=== PATIENT | female | born 1985 | race Caucasian/White ===

== ENCOUNTER 2019-08-04 00:35 | Emergency (ER) | payer OTHER ==
[~2019-08-04] VITALS: Ht 165.1 cm; Wt 114.8 kg
[2019-08-04 00:55] VITALS: BP 133/92
--- NOTE | 2019-08-04 00:58 | NUR ---
PT AMBULATED TO ER BED 02
[2019-08-04] MEDS ORDERED: CLINDAMYCIN 600 MG/4 ML VIAL IM ONE (01:05)
[2019-08-04] MEDS ORDERED: ONDANSETRON 4 MG ODT PO ONE (01:05)
[2019-08-04] MEDS ORDERED: MORPHINE SULFATE 2 MG/ML SYR IM ONE (01:05)
--- NOTE | 2019-08-04 01:23 | NUR ---
34 Y/O FEMALE C/O LEFT LOWER 3RD MOLAR TOOTHACHE X 1 WEEK. RATES PAIN 10/10 AND DESCRIBES IT SHOOTING. NO DRIANAGE OR SWELLING NOTED ON LEFT LOWER 3RD MOLAR. VSS. A&OX4. STEADY GAIT. +NAUSEA. DENIES ANY V,D. ABD IS SOFT, ROUND, NONTENDER, AND ACTIVE BS. NKA. PMH: HTN, C/S.
[2019-08-04 01:46] VITALS: BP 133/92
--- NOTE | 2019-08-04 01:47 | NUR ---
Patient discharged with v/s stable. Written and verbal after care instructions given and explained. Patient alert, oriented and verbalized understanding of instructions. Ambulatory with steady gait. All questions addressed prior to discharge. ID band removed. Patient advised to follow up with PMD. Rx of AUGMENTIN, TRAMDOL, ZOFRAN given. Patient educated on indication of medication including possible reaction and side effects. Opportunity to ask questions provided and answered.
== END 2019-08-04 01:45 | disposition home or self-care (01) ==
LOC: MED 00:35
DX: K04.7 Periapical abscess without sinus (principal)
CPT/HCPCS: 96372; 99284; J2270; J3490; Q0162

== ENCOUNTER 2020-05-17 20:38 | Inpatient (IN) | payer MEDICAID, SELFPAY ==
[~2020-05-17] VITALS: Ht 165.1 cm; Wt 117.0 kg
[2020-05-17 20:40] VITALS: BP 130/80
[2020-05-17] MEDS ORDERED: NACL 0.9% 1,000 ML IV SCH (21:05)
[2020-05-17] MEDS ORDERED: cefTRIAXone 1,000 MG in DEXT 5% MINI-BAG PLUS 50 ML IV ONE (21:05)
[2020-05-17] MEDS ORDERED: MORPHINE SULFATE 4 MG/ML SYR IVP ONE (21:05)
[2020-05-17] MEDS ORDERED: methylPREDNISolone SS 125 MG/2 ML VIAL IVP ONE (21:10)
[2020-05-17] MEDS ORDERED: cefTRIAXone 1,000 MG VIAL ONE (21:23)
[2020-05-17 21:34] LABS: BASOPHILS # (AUTO) 0.1 K/uL (0.00-0.22); BASOPHILS % (AUTO) 1.1 % (0.0-2.0); EOSINOPHILS # (AUTO) 0.3 K/uL (0-0.4); EOSINOPHILS % (AUTO) 2.6 % (0.0-4.0); HEMATOCRIT 37.5 % (36-48); HEMOGLOBIN 12.4 g/dL (12.0-16.0); LYMPHOCYTES # (AUTO) 1.6 K/uL (2.5-16.5); LYMPHOCYTES % (AUTO) 14.6 % (20.5-51.1); MEAN CORPUSCULAR HEMOGLOBIN 27 pg (27-31); MEAN CORPUSCULAR HGB CONC 33 g/dL (33-37); MEAN CORPUSCULAR VOLUME 81.6 fL (80-94); MONOCYTES # (AUTO) 0.9 K/uL (0.8-1.0); MONOCYTES % (AUTO) 8.4 % (1.7-9.3); NEUTROPHILS # (AUTO) 8.1 K/uL (1.8-7.7); NEUTROPHILS % (AUTO) 73.3 % (42.2-75.2); PLATELET COUNT (AUTO) 171 K/uL (140-450); RED BLOOD CELL COUNT(AUTO) 4.59 MIL/uL (4.20-5.40); RED CELL DISTRIBUTION WIDTH 16.8 % (11.6-13.7)
[2020-05-17 21:47] LABS: ALBUMIN 3.1 g/dL (3.4-5.0); CREATININE 0.7 mg/dL (0.6-1.3); TOTAL BILIRUBIN 0.4 mg/dL (0.0-1.0)
[2020-05-17 21:48] LABS: APPEARANCE,URINE CLEAR (CLEAR); BILIRUBIN,URINE NEGATIVE (NEGATIVE); BLOOD, URINE NEGATIVE (NEGATIVE); COLOR,URINE ORANGE (YELLOW); LEUKOCYTE ESTERASE ,URINE NEGATIVE (NEGATIVE); NITRITE, URINE POSITIVE (NEGATIVE); UGLUCOSE 3+ (NEGATIVE)
[2020-05-17 22:01] LABS: ANION GAP 13.1 (8-16); CARBON DIOXIDE 26.5 mmol/L (21-32); POTASSIUM 3.6 mmol/L (3.5-5.1)
[2020-05-17 22:15] LABS: RBC,URINE 0-5 /HPF (0-5); WBC,URINE 0-5 /HPF (0-5)
[2020-05-17] MEDS ORDERED: NACL 0.9% 1,000 ML IV ONE (22:55)
[2020-05-18] MEDS: NACL 0.9% 1,000 ML IV SCH ×4 (00:30→21:31)
[2020-05-18] MEDS: MORPHINE SULFATE 2 MG/ML SYR IVP PRN ×5 (01:37→21:33)
[2020-05-18] MEDS ORDERED: ONDANSETRON 4 MG/2 ML VIAL IM/IVP PRN (01:55)
[2020-05-18] MEDS ORDERED: POTASSIUM CHLORIDE 40 MEQ, LIDOCAINE MPF 1% 25 MG in NACL 0.9% 250 ML IV PRN (01:55)
[2020-05-18] MEDS ORDERED: DEXTROSE 50% 50 ML SYR IVP PRN (01:55)
[2020-05-18] MEDS ORDERED: DOCUSATE SODIUM 100 MG GELCAP PO PRN (01:55)
[2020-05-18] MEDS ORDERED: MAG SULF 2000 MG/WATER PREMIX 50 ML IV PRN (01:55)
[2020-05-18] MEDS ORDERED: ACETAMINOPHEN 325 MG TAB PO PRN (01:55)
[2020-05-18] MEDS ORDERED: SODIUM PHOS / POTASSIUM PHOS 1 PKT PDR PO PRN (01:55)
[2020-05-18 02:39] LABS: BARBITURATE, URINE NEGATIVE ng/ml (NEG <=200); BENZODIAZEPINE, URINE POSITIVE ng/mL (NEG <=200); CANNABINOID, URINE NEGATIVE ng/mL (NEG <=50); COCAINE, URINE NEGATIVE ng/mL (NEG <=300); OPIATE, URINE POSITIVE ng/mL (NEG <=2000); PHENCYCLIDINE SCREEN,URINE NEGATIVE ng/mL (NEG <=25)
[2020-05-18] MEDS: HYDROcodone/APAP 5/325 MG 1 TAB TAB PO PRN (03:33)
[2020-05-18 04:28] VITALS: BP 103/56
[2020-05-18 05:09] VITALS: BP 142/81
[2020-05-18] MEDS: INSULIN LISPRO SLIDING SCALE 100 UNITS/ML VIAL SUBQ PRN ×5 (06:19→21:46)
[2020-05-18] MEDS: BLOOD GLUCOSE MONITORING 1 DEV DEV FS SCH ×4 (07:30→21:38)
[2020-05-18 08:00] VITALS: BP 117/98
[2020-05-18 10:13] LABS: BASOPHILS # (AUTO) 0.1 K/uL (0.00-0.22); BASOPHILS % (AUTO) 0.5 % (0.0-2.0); HEMATOCRIT 38.2 % (36-48); HEMOGLOBIN 12.5 g/dL (12.0-16.0); LYMPHOCYTES # (AUTO) 1.2 K/uL (2.5-16.5); LYMPHOCYTES % (AUTO) 8.2 % (20.5-51.1); MEAN CORPUSCULAR HEMOGLOBIN 27 pg (27-31); MEAN CORPUSCULAR HGB CONC 33 g/dL (33-37); MEAN CORPUSCULAR VOLUME 81.1 fL (80-94); MONOCYTES # (AUTO) 0.4 K/uL (0.8-1.0); MONOCYTES % (AUTO) 2.9 % (1.7-9.3); NEUTROPHILS # (AUTO) 12.8 K/uL (1.8-7.7); NEUTROPHILS % (AUTO) 88.4 % (42.2-75.2); PLATELET COUNT (AUTO) 196 K/uL (140-450); RED BLOOD CELL COUNT(AUTO) 4.71 MIL/uL (4.20-5.40); WHITE BLOOD COUNT (AUTO) 14.5 K/uL (4.8-10.8)
[2020-05-18 10:23] LABS: ANION GAP 18.9 (8-16); CARBON DIOXIDE 19.8 mmol/L (21-32); CREATININE 0.7 mg/dL (0.6-1.3); POTASSIUM 4.7 mmol/L (3.5-5.1)
[2020-05-18 10:28] LABS: MAGNESIUM 1.8 mg/dL (1.8-2.4); PHOSPHORUS 3.8 mg/dL (2.5-4.9)
[2020-05-18] MEDS ORDERED: MORPHINE SULFATE 4 MG/ML SYR IVP SCH (11:35)
[2020-05-18] MEDS ORDERED: LABE100T8 PO (12:49)
[2020-05-18 14:33] LABS: ANION GAP 17.4 (8-16); CARBON DIOXIDE 20.9 mmol/L (21-32); CREATININE 0.7 mg/dL (0.6-1.3); POTASSIUM 4.3 mmol/L (3.5-5.1)
[2020-05-18 18:49] LABS: ANION GAP 15.4 (8-16); CARBON DIOXIDE 21.5 mmol/L (21-32); CREATININE 0.6 mg/dL (0.6-1.3); POTASSIUM 3.9 mmol/L (3.5-5.1)
[2020-05-18 20:00] VITALS: BP 121/68
[2020-05-18] MEDS: CLINDAMYCIN 600 MG in DEXTROSE 5% 50 ML IV SCH (21:39)
[2020-05-18] MEDS: INSULIN LANTUS 100 UNITS/ML 10 ML VIAL SUBQ SCH (21:44)
[2020-05-18 22:12] LABS: ANION GAP 12.8 (8-16); CARBON DIOXIDE 24.2 mmol/L (21-32); CREATININE 0.9 mg/dL (0.6-1.3)
[2020-05-18] MEDS ORDERED: HYDROmorphone 1 MG/ML AMP IVP PRN (23:10)
[2020-05-19] MEDS: NACL 0.9% 1,000 ML IV SCH ×2 (03:12→11:09)
[2020-05-19 04:00] VITALS: BP 138/80
[2020-05-19] MEDS: MORPHINE SULFATE 2 MG/ML SYR IVP PRN ×4 (04:42→20:21)
[2020-05-19] MEDS: CLINDAMYCIN 600 MG in DEXTROSE 5% 50 ML IV SCH ×3 (05:42→21:00)
[2020-05-19] MEDS: INSULIN LISPRO SLIDING SCALE 100 UNITS/ML VIAL SUBQ PRN ×4 (05:43→22:20)
[2020-05-19 06:06] LABS: ANION GAP 14.3 (8-16); CARBON DIOXIDE 23.7 mmol/L (21-32); CREATININE 0.6 mg/dL (0.6-1.3)
[2020-05-19 06:13] LABS: BASOPHILS # (AUTO) 0.1 K/uL (0.00-0.22); EOSINOPHILS # (AUTO) 0.2 K/uL (0-0.4); EOSINOPHILS % (AUTO) 1.9 % (0.0-4.0); HEMATOCRIT 33.4 % (36-48); LYMPHOCYTES # (AUTO) 1.9 K/uL (2.5-16.5); LYMPHOCYTES % (AUTO) 19.2 % (20.5-51.1); MEAN CORPUSCULAR HEMOGLOBIN 27 pg (27-31); MEAN CORPUSCULAR HGB CONC 33 g/dL (33-37); MEAN CORPUSCULAR VOLUME 82.2 fL (80-94); MONOCYTES # (AUTO) 0.7 K/uL (0.8-1.0); MONOCYTES % (AUTO) 6.9 % (1.7-9.3); PLATELET COUNT (AUTO) 199 K/uL (140-450); RED BLOOD CELL COUNT(AUTO) 4.06 MIL/uL (4.20-5.40); RED CELL DISTRIBUTION WIDTH 16.6 % (11.6-13.7); WHITE BLOOD COUNT (AUTO) 9.9 K/uL (4.8-10.8)
[2020-05-19 06:16] LABS: CHOL/HDL RATIO 6.2 (1-4.5)
[2020-05-19] MEDS: BLOOD GLUCOSE MONITORING 1 DEV DEV FS SCH ×6 (06:58→22:15)
[2020-05-19 08:00] VITALS: BP 105/54
[2020-05-19] MEDS: LABETALOL 100 MG TAB PO SCH (08:46)
[2020-05-19] MEDS: HYDROcodone/APAP 5/325 MG 1 TAB TAB PO PRN ×2 (11:50→17:34)
[2020-05-19 16:00] VITALS: BP 126/74
[2020-05-19] MEDS: INSULIN LANTUS 100 UNITS/ML 10 ML VIAL SUBQ SCH (22:21)
[2020-05-19] MEDS ORDERED: HYDROmorphone 1 MG/ML AMP IVP PRN (23:00)
[2020-05-20] MEDS: NACL 0.9% 1,000 ML IV SCH (01:25)
[2020-05-20 04:00] VITALS: BP 132/85
[2020-05-20] MEDS: MORPHINE SULFATE 2 MG/ML SYR IVP PRN ×3 (05:06→17:40)
[2020-05-20] MEDS: CLINDAMYCIN 600 MG in DEXTROSE 5% 50 ML IV SCH ×2 (05:07→17:27)
[2020-05-20] MEDS: BLOOD GLUCOSE MONITORING 1 DEV DEV FS SCH ×3 (06:05→17:08)
[2020-05-20 06:44] LABS: BASOPHILS # (AUTO) 0.1 K/uL (0.00-0.22); BASOPHILS % (AUTO) 1.2 % (0.0-2.0); EOSINOPHILS # (AUTO) 0.3 K/uL (0-0.4); EOSINOPHILS % (AUTO) 3.6 % (0.0-4.0); HEMATOCRIT 34.8 % (36-48); HEMOGLOBIN 11.5 g/dL (12.0-16.0); LYMPHOCYTES # (AUTO) 2.2 K/uL (2.5-16.5); LYMPHOCYTES % (AUTO) 29.6 % (20.5-51.1); MEAN CORPUSCULAR HEMOGLOBIN 27 pg (27-31); MEAN CORPUSCULAR HGB CONC 33 g/dL (33-37); MEAN CORPUSCULAR VOLUME 81.6 fL (80-94); MONOCYTES # (AUTO) 0.6 K/uL (0.8-1.0); MONOCYTES % (AUTO) 8.7 % (1.7-9.3); NEUTROPHILS # (AUTO) 4.2 K/uL (1.8-7.7); NEUTROPHILS % (AUTO) 56.9 % (42.2-75.2); PLATELET COUNT (AUTO) 176 K/uL (140-450); RED BLOOD CELL COUNT(AUTO) 4.26 MIL/uL (4.20-5.40); RED CELL DISTRIBUTION WIDTH 16.4 % (11.6-13.7); WHITE BLOOD COUNT (AUTO) 7.4 K/uL (4.8-10.8)
[2020-05-20 06:47] LABS: ANION GAP 13.7 (8-16); CREATININE 0.5 mg/dL (0.6-1.3); POTASSIUM 3.7 mmol/L (3.5-5.1)
[2020-05-20] MEDS ORDERED: DEXT 5% / NACL 0.9% 500 ML IV SCH (07:50)
[2020-05-20] MEDS ORDERED: DEXT 5% /NACL 0.9% 1,000 ML IV SCH (08:00)
[2020-05-20] MEDS: LABETALOL 100 MG TAB PO SCH (08:41)
[2020-05-20] MEDS: INSULIN LISPRO SLIDING SCALE 100 UNITS/ML VIAL SUBQ PRN ×2 (11:49→17:11)
[2020-05-20] MEDS ORDERED: BUPIVACAINE-MPF/EPI 0.25% 30 ML VIAL INJ ONE ×2 (12:56→14:59)
[2020-05-20] MEDS ORDERED: METF500T PO (12:57)
[2020-05-20] MEDS ORDERED: CLIN300C2 PO (12:57)
[2020-05-20] MEDS ORDERED: ACET-9882 PO (12:57)
[2020-05-20] MEDS ORDERED: HYDROGEN PEROXIDE 3% 240 ML BTL TP ONE (12:57)
[2020-05-20] MEDS ORDERED: IBUP-1842 PO (12:57)
[2020-05-20] MEDS ORDERED: MEPERIDINE 25 MG/ML SYR IVP PRN (16:00)
[2020-05-20] MEDS ORDERED: diphenhydrAMINE 50 MG/ML VIAL IVP PRN (16:00)
[2020-05-20] MEDS ORDERED: ONDANSETRON 4 MG/2 ML VIAL IVP PRN (16:00)
[2020-05-20] MEDS ORDERED: HYDROmorphone 1 MG/ML AMP IVP PRN (16:00)
[2020-05-20] MEDS ORDERED: LACTATED RINGERS 1,000 ML IV SCH (16:00)
[2020-05-20 19:30] VITALS: BP 125/75
== END 2020-05-20 20:30 | disposition home health service (06) | DRG 720 ==
LOC: MED 20:38 → MTU 22:04
PROVIDERS: ADMIT Hospitalist; ATTEND Hospitalist
PROC: 0JB70ZZ Excision of Back Subcutaneous Tissue and Fascia, Open Approach (ICD-10-PCS; principal; 2020-05-20 12:50)
DX: A41.9 Sepsis, unspecified organism (principal); E87.1 Hypo-osmolality and hyponatremia; E44.1 Mild protein-calorie malnutrition; Z68.41 Body mass index [BMI] 40.0-44.9, adult; N39.0 Urinary tract infection, site not specified; E66.01 Morbid (severe) obesity due to excess calories; Z20.822 Contact with and (suspected) exposure to COVID-19; L03.312 Cellulitis of back [any part except buttock and flank]; L02.211 Cutaneous abscess of abdominal wall; E11.65 Type 2 diabetes mellitus with hyperglycemia; I10 Essential (primary) hypertension; E78.1 Pure hyperglyceridemia; F17.210 Nicotine dependence, cigarettes, uncomplicated; I96 Gangrene, not elsewhere classified; Z71.3 Dietary counseling and surveillance; Z86.32 Personal history of gestational diabetes; Z98.891 History of uterine scar from previous surgery; Z83.3 Family history of diabetes mellitus; Z82.49 Family history of ischemic heart disease and other diseases of the circulatory system
CPT/HCPCS: 36415; 71045; 76881; 80048; 80053; 80305; 81001; 81025; 82803; 82948; 83036; 83605; 83735; 83880; 84100; 84484; 85025; 87040; 87070; 87075; 87081; 87086; 87205; 93005; 96361; 96374; 96375; 99285; J0696; J1170; J1815; J2175; J2270; J2405; J2930; J3490; J7030; J7042; J7060

== ENCOUNTER 2020-05-22 20:28 | Emergency (ER) | payer MEDICAID, SELFPAY ==
[~2020-05-22] VITALS: Ht 165.1 cm; Wt 117.5 kg
[~2020-05-22 20:28] MED LIST: ACET-9882 PO; CLIN300C2 PO; IBUP-1842 PO; LABE100T8 PO; METF500T PO
[2020-05-22 20:35] VITALS: BP 151/94
--- NOTE | 2020-05-22 20:44 | NUR ---
PT AMBULATORY TO LOBBY TO A/W BED.
[2020-05-22 21:32] VITALS: BP 151/94
--- NOTE | 2020-05-22 21:36 | NUR ---
To Theodore Burns
--- NOTE | 2020-05-22 21:37 | NUR ---
see complete assessment.
--- NOTE | 2020-05-22 21:41 | NUR ---
DR ROMERO EXAMINING PT
[2020-05-22] MEDS ORDERED: MORPHINE SULFATE 4 MG/ML SYR IM ONE (21:45)
[2020-05-22] MEDS ORDERED: HYDROcodone/APAP 10/325 MG 1 TAB TAB PO PRN (22:40)
--- NOTE | 2020-05-22 22:47 | NUR ---
Patient discharged with v/s stable. Written and verbal after care instructions given and explained. Patient verbalized understanding. Ambulatory with steady gait. All questions addressed prior to discharge. Advised to follow up with PMD.
== END 2020-05-22 22:47 | disposition home or self-care (01) ==
LOC: MED 20:28
DX: L02.211 Cutaneous abscess of abdominal wall (principal); Z48.01 Encounter for change or removal of surgical wound dressing
CPT/HCPCS: 96372; 99283; J2270

== ENCOUNTER 2020-05-25 19:13 | Emergency (ER) | payer MEDICAID, SELFPAY ==
[~2020-05-25] VITALS: Ht 165.1 cm; Wt 116.1 kg
[2020-05-25 19:24] VITALS: BP 135/90
--- NOTE | 2020-05-25 20:25 | NUR ---
35 YR OLD FEMALE PRESENTED TO THE ER WITH CC OF DRESSING CHANGE. PT IS AOX4. PT STATES RECEIVING SURGERY 1 WEEK AGO AND WAS INSTRUCTED TO COME BACK FOR DRESSING CHANGE. PT STATES SLIGHT BROWN DISCHARGE AT DRESSING WITH NO ODOR. PT DENIES PAIN AND DENIES OTHER MEDICAL COMPLAINTS. BED LOCKED IN LOWEST POSITION WITH 1 SIDE RAIL UP. HISTORY- HTN, DM ALLERGIES- NONE
--- NOTE | 2020-05-25 21:30 | NUR ---
PT FOUND AWAKE LYING ON LEFT SIDE IN BED. PT STATES NO PAIN AND NO DISTRESS. BED LOCKED IN LOWEST POSITION WITH 1 SIDE RAIL UP.
[2020-05-25] MEDS ORDERED: HYDROcodone/APAP 5/325 MG 1 TAB TAB PO ONE (21:45)
--- NOTE | 2020-05-25 21:50 | NUR ---
PT EDUCATED OF RISK AND BENEFITS OF PRESCRIBED PAIN MEDICATION. PT UNDERSTANDS EDUCATION FOR PAIN MEDICATION AND STATES HAS AVAILABLE TO DRIVE HER HOME. PRESCRIBE PAIN MEDICATION ADMINISTERED.
[2020-05-25 22:18] VITALS: BP 145/78
== END 2020-05-25 22:18 | disposition home or self-care (01) ==
LOC: MED 19:13
DX: J86.9 Pyothorax without fistula (principal); E11.9 Type 2 diabetes mellitus without complications; I10 Essential (primary) hypertension; Z79.84 Long term (current) use of oral hypoglycemic drugs; Z79.899 Other long term (current) drug therapy
CPT/HCPCS: 99283

== ENCOUNTER 2020-06-12 18:32 | Emergency (ER) | payer MEDICAID ==
[~2020-06-12] VITALS: Ht 165.1 cm; Wt 117.0 kg
[2020-06-12 18:39] VITALS: BP 151/76
--- NOTE | 2020-06-12 19:07 | NUR ---
Patient being evaluated by physician at TRIAGE ROOM.
--- NOTE | 2020-06-12 19:08 | NUR ---
BIB SELF FOR WOUND CHECK. PT HAD SURGICAL WOUND LEFT SIDE OF CHEST 1 MONTH AGO. PAIN 8/10 AT THIS TIME. 2 HOURS AGO PT'S BLOOD SUGAR 170. PMH: DM, HTN
[2020-06-12] MEDS ORDERED: BACITRACIN OINT 500 UNITS/GM PKT TP ONE (19:10)
--- NOTE | 2020-06-12 19:53 | NUR ---
PTS LEFT LATERAL WOUND WAS CLEANED WITH NS AND BATADIEN.BACITRACIN AND NON ADHERENT GAUZE WAS PLACED TO COVER WOUND.
[2020-06-12 19:55] VITALS: BP 151/76
== END 2020-06-12 19:55 | disposition home or self-care (01) ==
LOC: MED 18:32
DX: L02.213 Cutaneous abscess of chest wall (principal); Z48.00 Encounter for change or removal of nonsurgical wound dressing; E11.9 Type 2 diabetes mellitus without complications; I10 Essential (primary) hypertension
CPT/HCPCS: 99282